=== PATIENT | male | born 1995 | race African-American/Black ===

== ENCOUNTER 2021-03-10 18:02 | Emergency (ER) | payer OTHER, SELFPAY ==
[2021-03-10 18:05] VITALS: BP 126/75; PULSE 99; RESP 16; TEMP 37; O2SAT 99
--- NOTE | 2021-03-10 18:46 | ED.MALEGU ---
HPI - Male Genitourinary General Chief complaint: Urogenital-Male <Alanna Villatoro PA-C - Last Filed: 03/10/21 20:01> Stated complaint: treated for std <Alanna Villatoro PA-C - Last Filed: 03/10/21 20:01> Time Seen by Provider: 03/10/21 18:09 <Alanna Villatoro PA-C - Last Filed: 03/10/21 20:01> Source: patient <Alanna Villatoro PA-C - Last Filed: 03/10/21 20:01> Mode of arrival: ambulatory <Alanna Villatoro PA-C - Last Filed: 03/10/21 20:01> Limitations: no limitations <Alanna Villatoro PA-C - Last Filed: 03/10/21 20:01> History of Present Illness HPI Narrative: This is a 25-year-old male that presents to the emergency department for urogenital symptoms ongoing over the last 2 days. Reports green penile discharge and dysuria. Denies fever, abdominal pain, vomiting, or hematuria. <Alanna Villatoro PA-C - Last Filed: 03/10/21 20:01> Related Data Allergies/Adverse reactions: Allergies Allergy/AdvReac Type Severity Reaction Status Date / Time amoxicillin Allergy Unknown Verified 03/10/21 18:51 <Alanna Villatoro PA-C - Last Filed: 03/10/21 20:01> Review of Systems Review of Systems: CONSTITUTIONAL: Denies fever GASTROINTESTINAL: Denies abdominal pain, nausea, vomiting GENITOURINARY: Reports dysuria. Denies hematuria. SKIN: Denies rash <Alanna Villatoro PA-C - Last Filed: 03/10/21 20:01> All systems reviewed & are unremarkable except as noted in HPI and below <Alanna Villatoro PA-C - Last Filed: 03/10/21 20:01> PMFSH Past Medical History Medical History: Medical History (Updated 03/10/21 @ 19:58 by Alanna Villatoro PA-C) No active medical problems <Alanna Villatoro PA-C - Last Filed: 03/10/21 20:01> Social History Social History: Social History (Updated 03/10/21 @ 18:50 by Alanna Villatoro PA-C) Substance use: current Substance use type: marijuana <Alanna Villatoro PA-C - Last Filed: 03/10/21 20:01> Exam Narrative: GENERAL: Well-appearing, well-nourished, and in no acute distress. HEAD: Normocephalic, atraumatic. EYES: EOMI. CHEST: Clear to auscultation. No respiratory distress. No wheezes rales or rhonchi HEART: Regular rate and rhythm. No murmur heard. Normal peripheral pulses. ABDOMEN: Soft, nontender, nondistended, normal active bowel sounds. EXTREMITIES: Normal range of motion. No edema. SKIN: Warm, dry, no rash. NEURO: No focal deficits. Alert and oriented x3. PSYCH: Normal mood and affect MALE GENITAL: Normal appearing genitalia. Yellow/green urethral discharge. No testicular tenderness or swelling <Alanna Villatoro PA-C - Last Filed: 03/10/21 20:01> Course [employer] TENDER/PA Physician Supervision I did not see this patient nor was the care plan discussed with me. I was available for evaluation and consultation, I agree with the documentation <Zain Adams MD - Last Filed: 03/10/21 22:03> Vital Signs Vital signs: Vital Signs Temperature 37.0 C 03/10/21 18:05 Pulse Rate 99 03/10/21 18:05 Respiratory Rate 16 03/10/21 18:05 Blood Pressure 126/75 03/10/21 18:05 Pulse Oximetry 99 03/10/21 18:05 Temperature 37.0 C 03/10/21 18:05 Pulse Rate 99 03/10/21 18:05 Respiratory Rate 16 03/10/21 18:05 Blood Pressure 126/75 03/10/21 18:05 Pulse Oximetry 99 03/10/21 18:05 <Alanna Villatoro PA-C - Last Filed: 03/10/21 20:01> Vital Signs Temperature 37.0 C 03/10/21 18:05 Pulse Rate 99 03/10/21 18:05 Respiratory Rate 16 03/10/21 18:05 Blood Pressure 126/75 03/10/21 18:05 Pulse Oximetry 99 03/10/21 18:05 Temperature 37.0 C 03/10/21 18:05 Pulse Rate 99 03/10/21 18:05 Respiratory Rate 16 03/10/21 18:05 Blood Pressure 126/75 03/10/21 18:05 Pulse Oximetry 99 03/10/21 18:05 <Zain Adams MD - Last Filed: 03/10/21 22:03> MDM - Male Genitourinary MDM Narrative Medical decision making narrative: Patient presents to the ER for abnormal urethral dischar
[2021-03-10 19:02] LABS: Add Urine Microscopic? YES; Appearance Urine Cloudy (Clear); Bilirubin Urine Negative (Negative); Color Urine Yellow (Yellow); Glucose Urine UA Negative (Negative); Ketones Urine Negative (Negative); Leukocyte Esterase Ur 3+ LEU/UL (Negative); Nitrate Urine Negative (Negative); Protein Urine Negative (Negative); Specific Grav Ur 1.009 (1.001-1.035); Squamous Epithelial Cell Urine Rare /hpf (Few); Urobilinogen Urine Negative mg/dL (<2.0); WBC Urine >75 /hpf
[2021-03-10 19:05] LABS: Blood Urine Negative (Negative)
[2021-03-10] MEDS: cefTRIAXone 1 GM VIAL 0.5 GM IM (19:33)
== END 2021-03-10 20:20 | disposition home or self-care (01) ==
PROVIDERS: Physician Assistant; Emergency Provider Emergency Medicine
DX: R36.9 Urethral discharge, unspecified (principal); R30.0 Dysuria
CPT/HCPCS: 81001; 87086; 87491; 87591; 87661; 96372; 99283; J0696

== ENCOUNTER 2021-06-27 10:03 | Emergency (ER) | payer OTHER, SELFPAY ==
[2021-06-27 10:10] VITALS: BP 117/82; PULSE 61; RESP 20; TEMP 36.9; O2SAT 98
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
[2021-06-27] MEDS: TETANUS,DIPHTHERIA,AC PERTUSSIS ADULT 0.5 ML (ADACEL) (10:42)
[2021-06-27 10:46] VITALS: BP 121/81; PULSE 59; RESP 20; TEMP 37.1; O2SAT 97
== END 2021-06-27 10:47 | disposition home or self-care (01) ==
PROVIDERS: Emergency Provider Internal Medicine Critical Care Medicine
DX: S41.112A Laceration without foreign body of left upper arm, initial encounter (principal); W26.0XXA Contact with knife, initial encounter
CPT/HCPCS: 12001; 90471; 90715; 99282

== ENCOUNTER 2021-11-15 21:52 | Emergency (ER) | payer OTHER, SELFPAY ==
--- NOTE | ~2021-11-15 | CT_ITS ---
EXAMINATION: CT chest abdomen pelvis wo con DATE: 11/15/2021 23:37 INDICATION: Hematuria. TECHNIQUE: Computed tomography (CT) of the chest, abdomen, and pelvis was performed without intraveno us contrast. Automated exposure control and iterative reconstruction technique were employed. The dos e-length product was 281.37 mGy-cm. COMPARISON: None FINDINGS: CHEST CT: There is no pneumonia or pleural effusion. The heart size is normal. No pericardial effusion. ABDOMEN/PELVIS CT: The liver is normal. The gallbladder is contracted. The spleen, pancreas, adrenal glands, and kidneys are normal. There is no urolithiasis. There are no dilated loops of bowel. The appendix is normal. T here are no pathologically enlarged lymph nodes. There is no free intraperitoneal fluid. There is mil d lumbar spondylosis. IMPRESSION: 1. No etiology for the patient's symptoms. Reviewed, dictated and finalized at location A.
[2021-11-15 22:00] VITALS: BP 115/86; PULSE 101; RESP 18; TEMP 36.9; O2SAT 98
--- NOTE | 2021-11-15 22:07 | ED.MALEGU ---
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 No fever or chills. Onset (ago): day(s) ( Since this morning) Duration: intermittent Severity: moderate Relieving factors: none Exacerbating factors: none Related Data Sexually active: Yes Home Medications Medication Instructions Recorded Confirmed No Home Medications 11/15/21 11/15/21 Allergies Allergy/AdvReac Type Severity Reaction Status Date / Time amoxicillin Allergy Unknown Verified 11/15/21 22:09 Review of Systems Review of Systems: All systems reviewed & are unremarkable except as noted in HPI and below Constitutional: Constitutional: Reports as per HPI and Reports no additional constitutional complaints Eyes: Eyes: Reports as per HPI and Reports no additional eye complaints ENT: Reports system reviewed and no additional complaints, except as documented and Reports as per HPI Cardiovascular: Cardiovascular: Reports as per HPI and Reports no additional cardiovascular complaints Respiratory: Respiratory: Reports as per HPI and Reports no additional respiratory complaints Gastrointestinal: Gastrointestinal: Reports as per HPI and Reports no additional gastrointestinal complaints Genitourinary: Genitourinary: Reports no additional male genitourinary complaints, Reports as per HPI and Reports hematuria Musculoskeletal: Musculoskeletal: Reports no additional musculoskeletal complaints and Reports as per HPI Integumentary/Breasts: Skin/Breast: Reports system reviewed and no additional complaints, except as docu and Reports as per HPI Neurologic: Reports system reviewed and no additional complaints, except as documented and Reports as per HPI Psychiatric: Psychiatric: Reports no additional psychiatric complaints and Reports as per HPI Endocrine: Endocrine: Reports no additional endocrine complaints and Reports as per HPI Hematologic/Lymphatic: Hematologic/Lymphatic: Reports no additional hematologic/lymphatic complaints and Reports as per HPI Allergic/Immunologic: Allergic/Immunologic: Reports no additional allergic/immunologic complaints and Reports as per HPI [facility] Past Medical History Medical History (Updated 11/16/21 @ 00:41 by Leland Bowers MD) Bladder mass Hematuria No active medical problems Sickle cell trait Social History Social History Substance use: current Substance use type: marijuana Exam Const: General: cooperative and comfortable HENMT: Head: normal to inspection and normocephalic General nose exam: Normal external nose present and Normal nares present Face and sinus: normal facial exam, sinuses nontender and face symmetric Mouth: Yes Normal oral and palatal mucosa present Throat: posterior oropharynx normal and tonsils normal Eyes: General: appearance normal, both eyes and all related structures Neck: Neck: normal visual inspection and full ROM Thyroid: thyroid normal Chest: Chest palpation & inspection: normal inspection of the chest Resp: Effort & Inspection: normal respiratory effort Auscultation: clear to auscultation bilaterally Cardio: Palpation: normal PMI Rate: regular rate Rhythm: regular rhythm GI: Inspection: normal to inspection Auscultation: normal bowel sounds Other: no tenderness/rigidity / rebound. No testicular tenderness/swelling. : General: Yes bimanual renal exam normal bilaterally and Yes no CVA tenderness Male General Exam: Yes normal external exam Penis: Yes normal penis Meatus: meatus normal Scrotum: scrotum normal Testes: Testes normal
[2021-11-15 22:31] LABS: Basophils Absolute Auto 0.02 K/mm3 (0.00-0.10); Basophils Percent Auto 0.3 % (0.0-1.0); Eosinophils Absolute Auto 0.18 K/mm3 (0.02-0.50); Eosinophils Percent Auto 2.4 % (1.0-6.0); Hematocrit 40.6 % (40.0-54.0); Immature Granulocyte Absolute 0.01 K/mm3 (0.00-0.00); Immature Granulocyte Percent A 0.1 % (0.0-0.0); Lymphocytes Absolute Auto 2.19 K/mm3 (1.10-4.50); Lymphocytes Percent Auto 29.5 % (18.0-42.0); Mean Corpuscular HGB Conc 34.5 g/dL (32.0-36.0); Mean Corpuscular Hemoglobin 32.3 pg (27.0-31.0); Mean Corpuscular Volume 93.8 fL (78.0-102.0); Mean Platelet Volume 8.6 fl (8.7-11.0); Monocytes Absolute Auto 0.81 K/mm3 (0.10-0.90); Monocytes Percent Auto 10.9 % (2.0-11.0); Neutrophils Absolute Auto 4.2 K/mm3 (1.7-7.2); Neutrophils Percent Auto 56.8 % (50.0-70.0); Platelet Count Result 272 K/mm3 (150-420); Red Blood Count 4.33 M/mm3 (4.70-6.10); Red Cell Distribution Width 11.7 % (11.6-14.4); White Blood Count 7.4 K/mm3 (4.8-10.8)
[2021-11-15] MEDS: SODIUM CHLORIDE 0.9% IV 1,000 ML 999 ML IV CONT (22:31)
[2021-11-15 22:37] LABS: Add Urine Microscopic? YES; Appearance Urine Clear (Clear); Bilirubin Urine Negative (Negative); Blood Urine 3+ (Negative); Color Urine Yellow (Yellow); Glucose Urine UA Negative (Negative); Ketones Urine Negative (Negative); Leukocyte Esterase Ur Negative (Negative); Nitrate Urine Negative (Negative); Protein Urine Negative (Negative); Urobilinogen Urine 0.2 mg/dL (0.2-1.0)
[2021-11-15 22:50] LABS: RBC Urine >75 /hpf (0-2); Squamous Epithelial Cell Urine None seen /hpf (Few); WBC Urine 0-3 /hpf (0-3)
[2021-11-15 22:51] LABS: Bacteria Urine None seen /hpf; Mucus Urine Rare /lpf
[2021-11-15 22:53] LABS: Partial Thromboplastin Time 30.8 SEC (23.90-30.70); Prothrombin Time 11.4 Seconds (9.50-12.10)
[2021-11-15 22:54] LABS: Alanine Aminotransferase 19 U/L (16-63); Albumin Level 3.5 g/dL (3.4-5.0); Alkaline Phosphatase 68 U/L (46-116); Anion Gap 8 mmol/L (8-16); Aspartate Amino Transferase 14 U/L (15-37); Bilirubin,Total 0.5 mg/dL (0.00-1.00); Blood Urea Nitrogen 10 mg/dL (7-18); Calcium 8.7 mg/dL (8.5-10.1); Carbon Dioxide 26 mmol/L (21-32); Chloride 106 mmol/L (98-108); Estimated CRCL calculation 77 ml/min; Estimated Glomerular Filt Rate > 60; Glucose 130 mg/dL (70-99); Osmolality Calculated 291 mOsm/kg (285-295); Potassium 3.6 mmol/L (3.5-5.1); Sodium 140 mmol/L (136-145); Total Protein 6.4 g/dL (6.4-8.2)
[2021-11-16 00:48] VITALS: BP 118/80; PULSE 78; RESP 20; TEMP 36.6; O2SAT 100
--- NOTE | 2021-11-16 01:00 | PC.NURSE ---
explained sickle cell disease process, recommend see desktop operator & urologist
== END 2021-11-16 00:59 | disposition home or self-care (01) ==
PROVIDERS: Emergency Provider Internal Medicine Critical Care Medicine
DX: R31.9 Hematuria, unspecified (principal); D57.3 Sickle-cell trait
CPT/HCPCS: 36415; 71250; 74176; 80053; 81001; 85025; 85610; 85730; 87491; 87591; 96360; 99284; J7030